=== PATIENT | female | born 1990 | race Caucasian/White ===

== ENCOUNTER 2018-04-21 08:34 | Observation (INO) ==
--- NOTE | 2018-04-21 08:52 | Emergency Department Note ---
ED Disposition Clinical Impression: Gall bladder stones, Intractable abdominal pain Disposition: Still a Patient Condition on Discharge: Fair Instructions: DI for Acute Abdomen Referrals: Gisselle Torres APRN [Primary Care Provider] - - Critical Care Critical Care Time: No Attestation: On , the high probability of a clinically significant, sudden or life threatening deterioration of the following system(s) required my full and direct attention, intervention and personal management. The time I documented below is in addition to time spent performing reported procedures but includes the following listed in this critical care notation. Medical Decision Making - Medical Records Medical records reviewed: Yes: I reviewed the patient's medical records. - Tim Inquiry Pt receiving controlled substance: No Tim was queried for this patient: No Vital Signs: 04/21/18 08:37 04/21/18 09:03 04/21/18 11:01 Temperature 98.1 F 98.1 F Temperature Source Oral Oral Pulse Rate [Right Brachial] 98 H 98 H 70 Respiratory Rate 18 18 18 Blood Pressure [Right Arm] 148/89 H 148/89 H 117/79 Blood Pressure Mean [Right Arm] 108 108 91 Blood Pressure Source [Right Arm] Automatic Cuff Automatic Cuff Automatic Cuff Blood Pressure Position [Right Arm] Sitting Sitting Sitting 02 Sat by Pulse Oximetry 100 100 100 Oxygen Delivery Method Room Air Room Air Room Air 04/21/18 12:19 Temperature Temperature Source Pulse Rate [Right Brachial] 67 Respiratory Rate Blood Pressure [Right Arm] 120/73 Blood Pressure Mean [Right Arm] 88 Blood Pressure Source [Right Arm] Automatic Cuff Blood Pressure Position [Right Arm] Sitting 02 Sat by Pulse Oximetry 99 Oxygen Delivery Method - Lab Data Lab Results 04/21/18 08:55: WBC 10.1, RBC 5.16, Hgb 15.0, Hct 44.9, MCV 87.0, MCH 29.0, MCHC 33.4, RDW 13.1, Plt Count 195, MPV 7.9, Neut % (Auto) 76.4, Lymph % (Auto) 18.5, [place] % (Auto) 3.2, Eos % (Auto) 1.4, Baso % (Auto) 0.5, Neut # (Auto) 7.7, Lymph # (Auto) 1.9, [place] # (Auto) 0.3, Eos # (Auto) 0.1, Baso # (Auto) 0.1 04/21/18 08:55: Sodium 139, Potassium 3.9, Chloride 106, Carbon Dioxide 25, Anion Gap 11.9, BUN 15, Creatinine 0.86, Estimated Creat Clear 106, Estimated GFR 79, Est GFR ( Amer) 96, Glucose 113 H, Calcium 9.0, Total Bilirubin 0.5, AST 14 L, ALT 26, Alkaline Phosphatase 73, Troponin I < 0.02, Total Protein 7.1, Albumin 3.9, Globulin 3.2, Albumin/Globulin Ratio 1.2, Lipase 97 04/21/18 09:00: Urine Color Yellow, Urine Appearance Sl cloudy, Urine pH 6.0, Ur Specific [place] >= 1.030, Urine Protein Negative, Urine Glucose (UA) Negative, Urine Ketones Negative, Urine Blood 2+, Urine Nitrate Negative, Urine Bilirubin Negative, Urine Urobilinogen 0.2, Ur Leukocyte Esterase Trace, Urine RBC 5-10, Urine WBC 5-10, Ur Squamous Epith Cells 5-10, Urine Bacteria 3+ 04/21/18 09:00: Urine HCG, Qual Negative Result diagrams: 04/21/18 08:55 04/21/18 08:55 Orders (Tests/Meds): ED MEDICATIONS Discontinued Medications Generic Name Dose Route Start Last Admin Trade Name Freq PRN Reason Stop Dose Admin Diatrizoate Meglum/Diatrizoate Sod 30 ml 04/21/18 08:47 04/21/18 09:10 Gastrografin 66%-10% 30ml PO 04/21/18 08:48 30 ml ONCE ONE Administration Diatrizoate Meglum/Diatrizoate Sod 20 ml 04/21/18 10:01 04/21/18 10:03 Rad-Gastrografin (66%-10%);120ml PO 04/21/18 10:02 20 ml ONCE ONE Administration Dicyclomine HCl 10 mg 04/21/18 08:48 04/21/18 09:10 Bentyl 10mg Capsule PO 04/21/18 08:49 10 mg ONCE ONE Administration Famotidine 20 mg 04/21/18 08:48 04/21/18 09:10 Pepcid 20mg/2ml Vial IV 04/21/18 08:49 20 mg ONCE ONE Administration Sodium Chloride 1,000 mls @ 999 mls/hr 04/21/18 09:00 04/21/18 09:10 Sod Chlor 0.9% 1000ml Bag IV 04/21/18 10:00 999 mls/hr .Q1H1M GERALDO Administration Iopamidol 75 ml 04/21/18 10:04 04/21/18 10:04 Was-Wfrfxi-120; 75ml Vial IV 04/21/18 10:05 75 ml ONCE ONE Administration Protocol Sodium Chloride 10 ml 04/21/18 10:01 04/21/18 10:03 Rad-Saline Flush 10ml Syringe IV 04/21/18 10:02 10 ml ONCE ONE Administration ORDERS Category Date Time Status Urine Culture Stat Micro 04/21/18 09:00 Received ECG Request by /Jessiac Stat Y 04/21/18 08:47 Ordered - CT Data CT Scan: Abdomen, Pelvis Time Received: 11:[address] Reviewed: Yes: I have viewed the radiologist's interpretation Preliminary Findings: Abnormal Findings Narrative: MPRESSION: Calcification within the gallbladder may be due to gallbladder wall calcification versus gallstones. Stones or calcification noted near the neck of the gallbladder. A 13 mm isodensity is present in the neck of the gallbladder may represent a choledochocele or cyst. Ultrasound may initially be of further evaluation. MRCP may eventually be needed. Medical Decision Narrative: Her CBC liver functions and lipase were within normal limit. The patient had resurgence of her pain to 5/10 her ultrasound was positive for gallstones. I discussed with the patient outpatient management and she would not be tolerating this pain until next week. I called Dr. Rodriguez who agreed to admit the patient for pain control and possible cholecystectomy. Abdominal Pain HPI - General Chief Complaint: Abdominal Pain Stated Complaint: ABD Pain Time Seen by Provider: 04/21/18 08:50 Mode of Arrival: Ambulatory Limitations: No Limitations Description of Symptoms (Recalled from ER Triage Doc. by RN): Pt c/o pain in epigastric area that began approx 2100 lastnight, states pain is constant in nature, reports nausea. Pt reports tried to take Zantac to help with pain but reports it didn't help - History of Present Illness HPI narrative: 27 years old white female smoker with no significant past medical history. Menstrual period was 2 weeks ago she is 2 para 2 A0. Yesterday at 9 Pm, she ate barbecue ribs from [employer] with her and developed epigastric pain crampy in nature 6/10 radiating to the retrosternal area. Patient use Zantac and later on took an old oxycodone prescription with no relief. She continued to have pain through the night and this morning she developed nausea she came to the ED with the same pain rated 6/10. She denies vomiting misses coffee-ground emesis melanotic stool or bleeding per rectum. MD complaint: abdominal pain Onset (ago): hour(s) (11 hours.) Consistency: constant Location: epigastric Severity: moderate Severity scale (1-10): 6 Quality: cramping Radiation: chest Migration to: no migration Relieving factors: eating Exacerbating factors: nothing Associated symptoms: nausea - Related Data LMP Date: 04/06/18 Home Medications Medication Instructions Recorded Confirmed No Known Home Medications 04/10/18 04/10/18 Allergies Allergy/AdvReac Type Severity Reaction Status Date / Time No Known Allergies Allergy Verified 04/10/18 10:36 [facility] History I have reviewed the patient's past medical history: Yes Medical History: Denies:: Diabetes Mellitus Type 1, Diabetes Mellitus Type 2 Other Surgeries: Yes: Other Amputation: No Fractures: No Comment: D&C, Cone Bx Cx--2014 - Social History Smoking Status: Current every day smoker Tobacco Type: cigarettes # Packs/Day (cigarettes): 1 #Yrs smoked (if former smoker): 8 Alcohol Intake: never Alcohol Intake Frequency:: holidays/special occasions only Substance Use Type: denies use - Psychiatric History Expresses thoughts of harming self/others: None Suicide Plan Description: No Plan Family Hx:: No significant family history Comment: 2009, , female, No complications, bottle. 2013, , Male, no complications, Breast, Bottle ROS Obtained: Yes All systems reviewed & no additional complaints Physical Exam - General General appearance: alert, in no apparent distress - Head Head exam: atraumatic, normocephalic, normal inspection - Eye Eye exam: Present: normal appearance, PERRL, EOMI. Absent: scleral icterus, nystagmus, miosis - ENT ENT exam: Present: normal exam, normal oropharynx, mucous membranes moist, TM's normal bilaterally, normal external ear exam - Neck Neck exam: Present: normal inspection, full ROM, trachea midline. Absent: tenderness, meningismus, lymphadenopathy - Chest Chest inspection: Present: normal inspection, symmetric chest wall rise. Absent: tenderness - Respiratory Respiratory exam: Present: normal lung sounds bilaterally. Absent: respiratory distress, wheezes - Cardiovascular Cardiovascular exam: Present: regular rate, normal rhythm, normal heart sounds. Absent: JVD - Abdominal Exam Abdominal exam: Present: soft, tenderness, normal bowel sounds, other (She does have mild epigastric tenderness with no guarding no rigidity no focal tenderness no cross tenderness no rebound. ). Absent: distention, guarding, rebound, rigidity, Lozano's sign, tenderness at McBurney's Point - External exam: Present: normal external exam, other (Equal bilateral femoral pulse. ) - Extremities Exam Extremities exam: Present: normal inspection, full ROM, normal capillary refill. Absent: calf tenderness - Back Exam Back exam: Present: normal inspection. Absent: full ROM, tenderness, CVA tenderness (R), CVA tenderness (L), paraspinal tenderness, vertebral tenderness - Neurological Exam Neurological exam: Present: alert, oriented X3, CN II-XII intact, motor sensory deficit, reflexes normal - Psychiatric Psychiatric exam: Present: normal affect, normal mood - Skin Skin exam: Present: warm, dry, intact, normal color - Lymphatic Lymphatic Findings: no adenopathy
[2018-04-21 09:08] LABS: Basophils # 0.1 K/mm3 (0-0.2); Basophils % 0.5 % (0.1-2.0); Eosinophils # 0.1 K/mm3 (0.0-0.4); Eosinophils % 1.4 % (0.1-12.0); Hematocrit 44.9 % (37.0-47.0); Lymphocytes # 1.9 K/mm3 (0.7-4.5); Lymphocytes % 18.5 K/mm3 (10-50); Mean Corpuscular HGB Conc 33.4 g/dL (31.8-35.4); Mean Platelet Volume 7.9 fl (7.4-10.4); Monocytes # 0.3 K/mm3 (0.1-1.0); Monocytes % 3.2 % (1.7-9.3); Neutrophils # 7.7 K/mm3 (1.8-7.8); Neutrophils % 76.4 % (37.0-80.0); Platelet Count 195 K/mm3 (142-424); Red Blood Count 5.16 M/mm3 (4.20-5.40); Red Cell Distribution Width 13.1 % (11.5-17.5); White Blood Count 10.1 K/mm3 (4.8-10.8)
[2018-04-21 09:15] LABS: Microscopic, Urine URINE MICROSCOPIC (MICROSCOPIC)
[2018-04-21 09:18] LABS: Appearance,Urine SL CLOUDY (Clear); Bilirubin,Urine Negative (Negative); Blood, Urine 2+ (Negative); Color,Urine YELLOW (Yellow); Glucose,Urine (UA) Negative (Negative); Ketones,Urine Negative (Negative); Leukocyte Esterase,Urine TRACE (Negative); Protein,Urine Negative (Negative); Specific Gravity, Urine >= 1.030 (1.005-1.030); Urobilinogen,Urine 0.2 EU/dl (0.2)
[2018-04-21 09:25] LABS: Bacteria,Urine 3+ /lpf
[2018-04-21 09:33] LABS: Alanine Aminotransferase 26 U/L (12-78); Albumin Level 3.9 gm/dL (3.4-5.0); Albumin/Globulin Ratio 1.2 (1.1-1.8); Alkaline Phosphatase 73 U/L (46-116); Anion Gap 11.9 mEq/L (5-15); Aspartate Amino Transferase 14 U/L (15-37); Bilirubin,Total 0.5 mg/dL (0.2-1.0); Blood Urea Nitrogen 15 mg/dL (7-18); Carbon Dioxide 25 mmol/L (21.0-32.0); Chloride 106 mmol/L (98-107); Globulin 3.2 gm/dl (1.3-3.2); Glucose 113 mg/dL (74-106); Lipase 97 u/L (73-393); Potassium 3.9 mmoL/L (3.5-5.1); Sodium 139 mmol/L (136-145); Total Protein,Serum 7.1 gm/dL (6.4-8.2)
--- NOTE | 2018-04-24 13:20 | H&P/Discharge Summary ---
General - General Admission date:: 04/21/18 Discharge date: 04/21/18 *Admission Date: 04/21/18 *Chief complaint: Abdominal pain *History of present illness: Patient is a 27-year-old white female. She states that over the past several weeks she has had 2 or 3 assisted with biliary colic. This is usually been self-limited and resolved without intervention. However, yesterday evening she had a pork ribs. She had developed epigastric pain. This persisted throughout the evening. She presented to the emergency department this morning. She underwent CT scan which revealed findings of gallstones and possible ca lcification within cystic duct versus neck of the gallbladder versus choledochocele. He was then contacted. Patient underwent ultrasound which revealed findings consistent with cholelithiasis without cholecystitis. ER physician had requested recommendations from surgery elevator conductor. ER physician felt that the patient's pain was not amenable to outpatient management and warranted admission. Due to intractable pain she was admitted. Shortly after admission she had resolution of her symptoms. [facility] History I have reviewed the patient's past medical history: Yes Medical History: Denies:: Diabetes Mellitus Type 1, Diabetes Mellitus Type 2 Other Surgeries: Yes: Other (cyst removal) Amputation: No Fractures: No - *Social History Educational Level: Attended College Smoking Status: Current every day smoker Tobacco Type: cigarettes # Packs/Day (cigarettes): 10 #Yrs smoked (if former smoker): 8 Alcohol Intake: current Alcohol Intake Frequency:: holidays/special occasions only Substance Use Type: denies use Occupational Status: other Household Members: significant other, children - Psychiatric History Expresses thoughts of harming self/others: None Suicide Plan Description: No Plan *Family Hx:: No significant family history Review of Systems - Review of Systems Review of systems:: pertinent systems reviewed and negative unless documented below Exam Vital signs and Labs for Last 24 Hours: Temp Pulse Resp BP Pulse Ox 98.0 F 79 16 119/70 97 04/21/18 16:00 04/21/18 16:00 04/21/18 16:00 04/21/18 16:00 04/21/18 16:00 Laboratory Results - last 24 hr 04/21/18 08:55: WBC 10.1, RBC 5.16, Hgb 15.0, Hct 44.9, MCV 87.0, MCH 29.0, MCHC 33.4, RDW 13.1, Plt Count 195, MPV 7.9, Neut % (Auto) 76.4, Lymph % (Auto) 18.5, [place] % (Auto) 3.2, Eos % (Auto) 1.4, Baso % (Auto) 0.5, Neut # (Auto) 7.7, Lymph # (Auto) 1.9, [place] # (Auto) 0.3, Eos # (Auto) 0.1, Baso # (Auto) 0.1 04/21/18 08:55: Sodium 139, Potassium 3.9, Chloride 106, Carbon Dioxide 25, Anion Gap 11.9, BUN 15, Creatinine 0.86, Estimated Creat Clear 106, Estimated GFR 79, Est GFR ( Amer) 96, Glucose 113 H, Calcium 9.0, Total Bilirubin 0.5, AST 14 L, ALT 26, Alkaline Phosphatase 73, Troponin I < 0.02, Total Protein 7.1, Albumin 3.9, Globulin 3.2, Albumin/Globulin Ratio 1.2, Lipase 97 04/21/18 09:00: Urine Color Yellow, Urine Appearance Sl cloudy, Urine pH 6.0, Ur Specific [place] >= 1.030, Urine Protein Negative, Urine Glucose (UA) Negative, Urine Ketones Negative, Urine Blood 2+, Urine Nitrate Negative, Urine Bilirubin Negative, Urine Urobilinogen 0.2, Ur Leukocyte Esterase Trace, Urine RBC 5-10, Urine WBC 5-10, Ur Squamous Epith Cells 5-10, Urine Bacteria 3+ 04/21/18 09:00: Urine HCG, Qual Negative I & O for Last 24 hours: Intake & Output 04/19/18 04/20/18 04/21/18 04/22/18 11:59 11:59 11:59 11:59 Weight 150 lb 155 lb 9.001 oz - Constitutional no acute distress - *Routine HEENT Exam Head: Present: normocephalic Eye: Present: EOMI, PERRL ENT: Present: mucous membranes moist - *Routine Respiratory Exam Present: CTA bilaterally - *Routine Cardiovascular Exam Present: RRR - *Routine Abdominal Exam Present: soft, normoactive bowel sounds. Absent: tenderness Comments: Her abdomen is soft and nontender. She does have evidence of a possible small umbilical hernia. Hospital Course Hospital Course: Patient was admitted to the medical surgical floor. Soon after admission she had complete resolution of her symptoms. She was requesting being discharged. Plan was made for discharge with outpatient surgery arrangements. Results Labs on day of discharge: Labs from last 24 hours 04/21/18 04/21/18 04/21/18 09:00 09:00 08:55 WBC RBC Hgb Hct MCV MCH MCHC RDW Plt Count MPV Neut % (Auto) Lymph % (Auto) [place] % (Auto) Eos % (Auto) Baso % (Auto) Neut # (Auto) Lymph # (Auto) [place] # (Auto) Eos # (Auto) Baso # (Auto) Sodium 139 Potassium 3.9 Chloride 106 Carbon Dioxide 25 Anion Gap 11.9 BUN 15 Creatinine 0.86 Estimated Creat Clear 106 Estimated GFR 79 Est GFR ( Amer) 96 Glucose 113 H Calcium 9.0 Total Bilirubin 0.5 AST 14 L ALT 26 Alkaline Phosphatase 73 Troponin I < 0.02 Total Protein 7.1 Albumin 3.9 Globulin 3.2 Albumin/Globulin Ratio 1.2 Lipase 97 Urine Color Yellow Urine Appearance Sl cloudy Urine pH 6.0 Ur Specific [place] >= 1.030 Urine Protein Negative Urine Glucose (UA) Negative Urine Ketones Negative Urine Blood 2+ Urine Nitrate Negative Urine Bilirubin Negative Urine Urobilinogen 0.2 Ur Leukocyte Esterase Trace Urine RBC 5-10 Urine WBC 5-10 Ur Squamous Epith Cells 5-10 Urine Bacteria 3+ Urine HCG, Qual Negative 04/21/18 08:55 WBC 10.1 RBC 5.16 Hgb 15.0 Hct 44.9 MCV 87.0 MCH 29.0 MCHC 33.4 RDW 13.1 Plt Count 195 MPV 7.9 Neut % (Auto) 76.4 Lymph % (Auto) 18.5 [place] % (Auto) 3.2 Eos % (Auto) 1.4 Baso % (Auto) 0.5 Neut # (Auto) 7.7 Lymph # (Auto) 1.9 [place] # (Auto) 0.3 Eos # (Auto) 0.1 Baso # (Auto) 0.1 Sodium Potassium Chloride Carbon Dioxide Anion Gap BUN Creatinine Estimated Creat Clear Estimated GFR Est GFR ( Amer) Glucose Calcium Total Bilirubin AST ALT Alkaline Phosphatase Troponin I Total Protein Albumin Globulin Albumin/Globulin Ratio Lipase Urine Color Urine Appearance Urine pH Ur Specific [place] Urine Protein Urine Glucose (UA) Urine Ketones Urine Blood Urine Nitrate Urine Bilirubin Urine Urobilinogen Ur Leukocyte Esterase Urine RBC Urine WBC Ur Squamous Epith Cells Urine Bacteria Urine HCG, Qual Discharge Medications - Medications for Discharge Home Medication List at Discharge: No Action No Known Home Medications
== END 2018-04-21 17:15 | disposition home or self-care (01) ==
LOC: ER 08:34 → 2ND 08:34
PROVIDERS: ADMIT Surgery; ATTEND Surgery

== ENCOUNTER → 2021-06-19 19:34 | Outpatient (CLI) | payer MEDICAID, SELFPAY | PROVIDERS: Visit Provider Nurse Practitioner Family | DX: U07.1 COVID-19 (principal) | CPT/HCPCS: C9803; U0003; U0005 ==

== ENCOUNTER 2021-10-19 12:47 | Emergency (ER) | payer MEDICAID, SELFPAY ==
[2021-10-19 12:50] VITALS: BP 132/91; PULSE 78; RESP 19; TEMP 37.1; O2SAT 99; BMI 28.0
--- NOTE | 2021-10-19 13:05 | HMH.EDUTC ---
[facility] [place] Clinical Impression: URI (upper respiratory infection) Qualifiers: URI type: unspecified URI Qualified Code(s): J06.9 - Acute upper respiratory infection, unspecified Disposition: Home, Self-Care Condition on Discharge: Good Instructions: Sore Throat, Amoxicillin Additional Instructions: *Monitor Temp, Over the counter Motrin or Tylenol as directed/as needed Tylenol every 4 hours and Motrin every 6 hours (as long as your family doctor has told you that you can take it) for fever or pain. and straight to ER if unable to lower temp less than 101.0 after medication given *Warm salt water gargles may help to soothe the throat *Throat Lozenges *Warm fluids like tea with honey may help to soothe the throat *Sleep elevated *Humidifier/Vaporizer Your throat swab was sent for culture. Those results are typically sent to your primary care. Be sure to follow up in 2-3 days with your family doctor/primary care physician if no improvement so they can review those result and treat if necessary. If you don?t have a primary care doctor, I recommend you get one but in the mean time, you will have to return to a walk in clinic Follow up IMMEDIATELY for new or worsening symptoms or no Noticeable improvement over the next 48-72 hours. 911 for difficulty breathing or swallowing Prescriptions: Amoxicillin [Amoxicillin 500mg Cap] 500 mg PO BID #20 cap Transmission Status: Pending to [facility] Referrals: Britt Suarez [Primary Care Provider] - As needed Time of Disposition: 13:17 Medical Decision Making - iTm Inquiry Pt receiving controlled substance: No Tim was queried for this patient: No Vital Signs: 10/19/21 12:50 10/19/21 13:13 Temperature 98.8 F 98.8 F Temperature Source Oral Pulse Rate 78 Pulse Rate [Right Brachial] 78 Respiratory Rate 19 19 Blood Pressure 132/91 H Blood Pressure [Right Arm] 132/91 H Blood Pressure Mean [Right Arm] 104 Blood Pressure Source [Right Arm] Automatic Cuff Blood Pressure Position [Right Arm] Sitting 02 Sat by Pulse Oximetry 99 Oxygen Delivery Method Room Air - Lab Data Lab results reviewed: Yes: I reviewed the patient's lab results. Lab Results 10/19/21 12:53: Group A Strep Rapid Negative Orders (Tests/Meds): ORDERS Category Date Time Status Strep Screen Confirmation Stat Micro 10/19/21 12:53 Received [facility] [place] - General Stated complaint: sore throat, congestion Time Seen by Provider: 10/19/21 13:05 Mode of Arrival: Ambulatory Source of Information: Patient Limitations: No Limitations Description of Symptoms (Recalled from Triage Doc. by RN): PATIENT C/O SORE THROAT AND CONGESTION X 2 DAYS HEENT Symptoms (Recalled from RN notes): Yes Resp Symptoms (Recalled from RN notes): No Skin Symptoms (Recalled from RN notes): No MS Symptoms (Recalled from RN notes): No Functional Status (Recalled from RN notes): wnl - History of Present Illness Provider Complaint: Patient states that children recently had strep throat and for the last couple of days she has been having sore scratchy throat and headache States that today she was feeling achy like she may have strep throat now too so she came in - Related Data Home Medications Medication Instructions Recorded Confirmed etonogestrel 68 mg subdermal SUBDERMAL 03/13/21 06/19/21 implant Previous Rx's Medication Instructions Recorded Amoxicillin [Amoxicillin 500mg 500 mg PO BID #20 cap 10/19/21 Cap] Allergies Allergy/AdvReac Type Severity Reaction Status Date / Time No Known Allergies Allergy Verified 06/19/21 13:11 - Worker's Comp Is this a Worker's Comp case?: No [facility] History - Hepatitis A Screen Drug use history?: No High risk sexual behaviors?: No History of sexually transmitted infection?: No Currently employed?: No Childcare worker?: No Do you have indoor plumbing?: Yes Do you have electricity?: Yes Attestation statement::
[2021-10-19 13:13] VITALS: BP 132/91; PULSE 78; RESP 19; TEMP 37.1; O2SAT 99
[2021-10-19 13:13] LABS: Strep Scrn Group A (Rapid) Negative (Negative)
== END 2021-10-19 13:20 | disposition home or self-care (01) ==
PROVIDERS: Emergency Provider Nurse Practitioner; PCP Family Medicine
DX: J06.9 Acute upper respiratory infection, unspecified (principal); F17.210 Nicotine dependence, cigarettes, uncomplicated
CPT/HCPCS: 87430; 99212; G0463

== ENCOUNTER 2022-03-09 08:05 | Emergency (ER) | payer MEDICAID, SELFPAY ==
[2022-03-09 08:53] LABS: UTC Strep Screen (Rapid) Negative (Negative)
[2022-03-09 08:59] VITALS: BP 117/83; PULSE 105; RESP 18; TEMP 37.2; O2SAT 98; BMI 31.1
--- NOTE | 2022-03-09 08:59 | EXP.UTC ---
Discharge Plan Disposition Patient Disposition: Home, Self-Care Condition: Good Prescriptions Prescriptions: New azithromycin [Zithromax] 250 mg tablet 250 mg PO UD DOSE PK Qty: 6 0RF Rx Instructions: Take two (2) tablets today, then one (1) tablet days #2 thru #5 No Action Nexplanon 68 mg implant SUBDERMAL amoxicillin 500 MG capsule 500 mg PO BID Qty: 20 0RF Referrals Referrals: Britt Suarez [Primary Care Provider] - Enter time for follow up Activity Restrictions/Add. Instructions Additional Instructions/Restrictions: Drink plenty of fluids. Take tylenol or ibuprofen for pain or fever. Take the medications as directed. Follow up with your regular doctor. GO TO THE ER FOR ANY WORSENING SYMPTOMS Clinical Impressions Clinical Impression: Pharyngitis Instructions Patient Instructions: DI for Pharyngitis/Tonsillopharyngitis -- Adult Discharge ED Provider: Rangel Canales [facility] [place] HPI General Stated complaint: Sore throat, congestion, fever Time Seen by Provider: 03/09/22 08:51 History of Present Illness Provider Complaint: SHe states that for the past 2 days she has had sinus congestion, sore throat and body aches. Related Data Home Medications Medication Instructions Recorded Confirmed etonogestrel 68 mg subdermal subdermal 03/13/21 06/19/21 implant (Nexplanon) Previous Rx's Medication Instructions Recorded amoxicillin 500 mg capsule 500 mg PO BID #20 caps 10/19/21 azithromycin 250 mg tablet 250 mg PO UD DOSE PK #6 tabs 03/09/22 (Zithromax) Allergies Allergy/AdvReac Type Severity Reaction Status Date / Time No Known Allergies Allergy Verified 06/19/21 13:11 [facility] Social History Smoking Status: Current every day smoker tobacco type: cigarettes packs per day: 10 alcohol intake: never substance use type: denies use current occupational status: other household members: significant other and children housing: house current occupation: stay at home mom caffeine: Yes ROS Obtained: Yes All systems reviewed & no additional complaints except as documented Constitutional Constitutional: Reports chills and Reports fever(s) Eyes Eyes: Denies eye discharge ENT Ears, Nose, Mouth, and Throat: Reports as per HPI Cardiovascular Cardiovascular: Denies chest pain Respiratory Respiratory: Denies chest congestion and Reports cough Gastrointestinal Gastrointestingal: Reports nausea; Denies abdominal pain, constipation, cramping, diarrhea or vomiting Musculoskeletal Musculoskeletal: Denies arthralgias Integumentary/Breasts Skin/Breast: Denies rash Neurologic Neurologic: Denies paresthesias Physical Exam General General appearance: alert and in no apparent distress Head Head exam: atraumatic and normocephalic Eye Eye exam: Present normal appearance, PERRL and EOMI ENT ENT exam: Present normal exam, normal oropharynx, mucous membranes moist and TM's normal bilaterally Neck Neck exam: Present normal inspection, full ROM and trachea midline; Absent tenderness, meningismus or lymphadenopathy Chest Chest inspection: Present normal inspection and symmetric chest wall rise; Absent tenderness Respiratory Respiratory exam: Present normal lung sounds bilaterally; Absent respiratory distress, wheezes or stridor Cardiovascular Cardiovascular exam: Present regular rate, normal rhythm and normal heart sounds Abdominal Exam Abdominal exam: Present soft and normal bowel sounds; Absent distention, tenderness, guarding, rebound or rigidity Extremities Exam Extremities exam: Present normal inspection and full ROM; Absent tenderness Neurological Exam Neurological exam: Present alert and oriented X3 Medical Decision Making Tim Inquiry Pt receiving controlled substance: No Lab Data Lab Results 03/09/22 08:35: Strep Scn Rapid Clinic Negative Orders (Tests/Meds): ORDERS Category
[2022-03-09 09:26] VITALS: BP 117/83; PULSE 105; RESP 18; TEMP 37.2
== END 2022-03-09 09:26 | disposition home or self-care (01) ==
PROVIDERS: Emergency Provider Nurse Practitioner Family; PCP Family Medicine
DX: J02.9 Acute pharyngitis, unspecified (principal); R50.9 Fever, unspecified; M79.10 Myalgia, unspecified site; F17.210 Nicotine dependence, cigarettes, uncomplicated; Z79.3 Long term (current) use of hormonal contraceptives
CPT/HCPCS: 87880; 99213; G0463